=== PATIENT | male | born 1950 | race Caucasian/White ===

== ENCOUNTER 2018-03-31 13:24 | Emergency (ER) | payer SELFPAY ==
--- NOTE | 2018-03-31 13:51 | EDM.PDOC ---
ED HPI GENERAL MEDICAL PROBLEM - General Chief Complaint: Cardiovascular Problem Stated Complaint: SENT OVER FROM [facility] H[facility] & NOSE BLEED Time Seen by Provider: 03/31/18 13:51 Source of Information: Reports: Patient - History of Present Illness INITIAL COMMENTS - FREE TEXT/NARRATIVE: Patient was sent over for [facility] for evaluation of epistaxis and hypertension. Patient states that he really has never had a nosebleed without some sort of injury is something causing this. Nosebleed started this morning and has been dripping intermittently throughout the day. Nasal tampon was put into the right side by provider at the [facility] walk-in [facility] and upon arrival here in the emergency department patient's nosebleed has stopped. Patient states that he has been told on numerous occasions that he has had high blood pressure but he has not sought treatment for this. He states that he feels well, denies any headache. Denies any vision changes. Denies any chest pain or dyspnea. Has a family history of stroke in his father. Patient is not on any medications on a regular basis. Patient does not use tobacco. Notes rare alcohol use with 3-4 beers per week. Denies any illicit drug use. does have caffeine in the form of coffee most mornings. Patient is here from [place], [place] for work, has been in [employer] for approximately one week and will likely be here around 6 months. He does not have a local provider or regular PCP back home. - Related Data Allergies Allergy/AdvReac Type Severity Reaction Status Date / Time No Known Allergies Allergy Verified 03/31/18 13:40 Home Meds: Home Meds Lisinopril 20 mg PO DAILY #30 tablet 03/31/18 [Rx] Past Medical History - Past Health History Medical/Surgical History: Denies Medical/Surgical History - Past Surgical History Musculoskeletal Surgical History: Reports: Other (See Below) Other Musculoskeletal Surgeries/Procedures:: screws placed in ankle Social & Family History - Tobacco Use Smoking Status *Q: Never Smoker Second Hand Smoke Exposure: Yes - Caffeine Use Caffeine Use: Reports: Coffee - Recreational Drug Use Recreational Drug Use: No ED ROS GENERAL - Review of Systems Review Of Systems: See Below Constitutional: Denies: Fever, Chills, Malaise, Weakness, Night Sweats, Diaphoresis, Decreased Appetite HEENT: Reports: Nosebleed. Denies: Throat Pain, Throat Swelling, Vertigo, Vision Change Respiratory: Reports: No Symptoms Cardiovascular: Reports: Blood Pressure Problem. Denies: Chest Pain, Dyspnea on Exertion, Edema, Lightheadedness, Palpitations GI/Abdominal: Reports: No Symptoms Musculoskeletal: Reports: No Symptoms Skin: Reports: No Symptoms Neurological: Reports: No Symptoms Psychiatric: Reports: No Symptoms Hematologic/Lymphatic: Denies: Anemia, Easy Bleeding, Easy Bruising ED EXAM, GENERAL - Physical Exam Exam: See Below Exam Limited By: No Limitations General Appearance: Alert, WD/WN, No Apparent Distress Eye Exam: Bilateral Eye: A-V [place], Normal Inspection, PERRL Ears: Normal External Exam, Normal Canal, Normal TMs Throat/Mouth: Normal Inspection, Normal Oropharynx Head: Atraumatic, Normocephalic Neck: Normal Inspection, Supple, Non-Tender Respiratory/Chest: No Respiratory Distress, Lungs Clear, Normal Breath Sounds Cardiovascular: Regular Rate, Rhythm, No JVD, No Murmur GI/Abdominal: Normal Bowel Sounds, Soft, Non-Tender Neurological: Alert, Oriented Psychiatric: Normal Affect, Normal Mood Skin Exam: Warm, Dry, Intact Course - Vital Signs Last Recorded V/S: Last Vital Signs Temp 98.7 F 03/31/18 13:38 Pulse 74 03/31/18 13:38 Resp 20 03/31/18 13:38 BP 183/101 H 03/31/18 14:53 Pulse Ox 99 03/31/18 13:38 - Orders/Labs/Meds Orders: Active Orders 24 hr Category Date Time Status Sodium Chloride 0.9% [Saline Flush] Med 03/31/18 14:11 Active 10 ml FLUSH ASDIRECTED PRN Saline Lock Insert [OM.PC] Routine Oth 03/31/18 14:11 Ordered Medication Orders Sodium Chloride (Saline Flush) 10 ml FLUSH ASDIRECTED PRN PRN Reason: Keep Vein Open Last Admin: 03/31/18 14:19 Dose: 10 ml Meds: Medications Generic Name Dose Route Start Last Admin Trade Name Freq PRN Reason Stop Dose Admin Sodium Chloride 10 ml 03/31/18 14:11 03/31/18 14:19 Saline Flush FLUSH 10 ml ASDIRECTED PRN Administration Keep Vein Open Discontinued Medications Generic Name Dose Route Start Last Admin Trade Name Freq PRN Reason Stop Dose Admin Labetalol HCl 20 mg 03/31/18 14:12 03/31/18 14:20 Normodyne IVPUSH 03/31/18 14:13 4 ml ONETIME ONE Administration Protocol Labetalol HCl 20 mg 03/31/18 14:46 03/31/18 14:50 Normodyne IVPUSH 03/31/18 14:47 4 ml ONETIME ONE Administration Protocol Lisinopril 20 mg 03/31/18 14:47 03/31/18 14:53 Prinivil PO 03/31/18 14:48 20 mg ONETIME ONE Administration - Re-Assessments/Exams Free Text/Narrative Re-Assessment/Exam: Epistaxis has resolved upon arrival. Patient denies any chest pain, headache or dyspnea. His hypertension likely was contributing to his nosebleed. Discussed with Dr. Gleason, will give him 20 mg IV labetalol in the emergency department. 03/31/18 14:44 BP lowered minimally improved, repeat labetalol dose. Will get lisinopril on board as he will likely be discharged on this as well. 03/31/18 14:50 Pressure has come down somewhat, but certainly not to goal range. Patient has been given his first dose of lisinopril and is tolerating this adequately, though it has not taken effect as of yet. He'll be discharged with a prescription to continue the lisinopril. He will keep the nasal balloon in place. He has had no further bleeding since being in the emergency department. He will follow-up in the clinic on Monday return to the emergency department if needed. 03/31/18 15:25 Departure - Departure Time of Disposition: 15:26 Disposition: Home, Self-Care 01 Condition: Good Clinical Impression: Epistaxis Hypertension Qualifiers: Hypertension type: unspecified Qualified Code(s): I10 - Essential (primary) hypertension Prescriptions: Lisinopril 20 mg PO DAILY #30 tablet Instructions: Preventing Hypertension Referrals: Abdirashid Munguia PA [Emergency Provider] - Forms: ED Department Discharge Additional Instructions: You were evaluated in the emergency department today for a nose bleed which has now stopped. I recommend that he leave the balloon and we will see you in the clinic on Monday to remove this. You'll start lisinopril for her blood pressure, 20 mg every morning. Try to follow a low-sodium diet. Follow-up in the clinic here at [facility] Monday or return to the emergency department for any new or worsening symptoms. - My Orders Last 24 Hours: My Active Orders 03/31/18 14:11 Sodium Chloride 0.9% [Saline Flush] 10 ml FLUSH ASDIRECTED PRN Saline Lock Insert [OM.PC] Routine - Assessment/Plan Last 24 Hours: My Active Orders 03/31/18 14:11 Sodium Chloride 0.9% [Saline Flush] 10 ml FLUSH ASDIRECTED PRN Saline Lock Insert [OM.PC] Routine
[2018-03-31] MEDS ORDERED: Sodium Chloride 0.9% 10 ML Syringe FLUSH PRN (14:11)
[2018-03-31] MEDS ORDERED: Labetalol 100 MG/20 ML MDV IVPUSH ONE ×2 (14:12→14:46)
[2018-03-31] MEDS ORDERED: Lisinopril 5 MG Tab PO ONE (14:47)
== END 2018-03-31 15:41 | disposition home or self-care (01) ==
LOC: JD.ED 13:24
DX: R04.0 Epistaxis (principal); I10 Essential (primary) hypertension
CPT/HCPCS: 96374; 96376; 99283; A9270; J3490